=== PATIENT | male | born 1990 | race Caucasian/White ===

== ENCOUNTER 2017-10-08 08:04 | Emergency (ER) | END 2017-10-08 08:52 | disposition home or self-care (01) | DX: K04.7 Periapical abscess without sinus (principal) ==

== ENCOUNTER 2017-10-09 01:00 | Emergency (ER) | payer SELFPAY ==
[~2017-10-09] VITALS: Ht 180.3 cm; Wt 65.0 kg
[~2017-10-09 01:00] MED LIST: NAPR500T2 PO; PENI500T PO
[2017-10-09 01:11] VITALS: BP 124/60; PULSE 101; RESP 22; TEMP 102.8; O2SAT 98
[2017-10-09] MEDS ORDERED: ACETAMINOPHEN 650 MG/20.3 ML UDC ONE (02:00)
[2017-10-09 03:00] VITALS: BP 125/68; PULSE 88; RESP 16; TEMP 99.4; O2SAT 98
[2017-10-09] MEDS ORDERED: ACETAMINOPHEN 650 MG/20.3 ML UDC PO ONE (03:00)
[2017-10-09 03:49] LABS: AUTOMATED NEUTROPHIL # 9.8 TH/MM3 (1.8-7.7); BASOPHIL % 0.3 % (0.0-2.0); EOSINOPHIL % 0.1 % (0.0-4.0); HEMATOCRIT 40.3 % (39.0-51.0); HEMOGLOBIN 14.1 GM/DL (13.0-17.0); LYMPH % 8.6 % (9.0-44.0); MEAN CELL VOLUME 88.7 FL (80.0-100.0); MEAN CORPUSCULAR HEMOGLOBIN 31.1 PG (27.0-34.0); MEAN CORPUSCULAR HGB CONC 35.1 % (32.0-36.0); MEAN PLATELET VOLUME 7.4 FL (7.0-11.0); MONO % 10.3 % (0.0-8.0); MONOCYTE # 1.2 TH/MM3 (0-0.9); NEUT % 80.7 % (16.0-70.0); PLATELET COUNT 209 TH/MM3 (150-450); RED BLOOD COUNT 4.54 MIL/MM3 (4.50-5.90); RED CELL DISTRIBUTION WIDTH 12.2 % (11.6-17.2); WHITE BLOOD COUNT 12.1 TH/MM3 (4.0-11.0)
--- NOTE | 2017-10-09 03:50 | PD ---
HPI Chief Complaint: Fever Time Seen by Provider: 01:30 Travel History International Travel<30 days: No Contact w/Intl Traveler<30days: No Traveled to known affect area: No History of Present Illness HPI Patient has a tooth abscess lower left that he is on Pen-Vee K for that he started just yesterday when he went to another ER for the complaint he says the pain is getting worse in spite of the Pen-Vee K and he now says he has a fever of 103. He says he has no other source. He only thinks that the tooth infection is causing the fever. He denies congestion no cough he does have some trismus he reports otherwise he denies any other symptoms except fever he comes in for the fever and left infected lower tooth. Throbbing pain localized to left lower tooth molar area PFSH Past Medical History Medical History: Denies Significant Hx Influenza Vaccination: No Past Surgical History Surgical History: No Previous Surgery Social History Alcohol Use: No Tobacco Use: No Substance Use: No Allergies-Medications (Allergen,Severity, Reaction): Coded Allergies: No Known Allergies (Unverified , 10/09/17) Reported Meds & Prescriptions Reported Meds & Active Scripts Active Tramadol (Tramadol HCl) 50 Mg Tab 50 Mg PO Q6H PRN Clindamycin (Clindamycin HCl) 300 Mg Cap 300 Mg PO TID Naproxen 500 Mg Tab 500 Mg PO BID PRN Penicillin V Potassium 500 Mg Tab 500 Mg PO Q8H 7 Days Review of Systems Except as stated in HPI: all other systems reviewed are Neg General / Constitutional: Positive: Fever HENT: Positive: Other (toothache) Physical Exam Narrative GENERAL: non toxic non septic appearance SKIN: Warm and dry. HEAD: Atraumatic. Normocephalic. EYES: Pupils equal and round. No scleral icterus. No injection or drainage. ENT: Tooth decay to lower left maolars no apical abscess noted and no bone involvement with palpation of jaw bone by this MD . localized infection of tooth. unlikely systemic cause of fever. NECK: Trachea midline. No JVD. CARDIOVASCULAR: Regular rate and rhythm. RESPIRATORY: No accessory muscle use. Clear to auscultation. Breath sounds equal bilaterally. GASTROINTESTINAL: Abdomen soft, non-tender, nondistended. Hepatic and splenic margins not palpable. MUSCULOSKELETAL: Extremities without clubbing, cyanosis, or edema. No obvious deformities. NEUROLOGICAL: Awake and alert. No obvious cranial nerve deficits. Motor grossly within normal limits. Five out of 5 muscle strength in the arms and legs. Normal speech. PSYCHIATRIC: Appropriate mood and affect; insight and judgment normal. Data Data Last Documented VS Vital Signs Date Time Temp Pulse Resp B/P (MAP) Pulse Ox O2 Delivery O2 Flow Rate FiO2 10/09/17 04:45 10/09/17 03:00 99.4 88 16 98 Room Air Orders Orders Acetaminophen 650 Mg/20 Ml Liq (Tylenol (10/09/17 02:00) Acetaminophen 650 Mg/20 Ml Liq (Tylenol (10/09/17 03:00) Complete Blood Count With Diff (10/09/17 03:01) Comprehensive Metabolic Panel (10/09/17 03:01) Blood Culture (10/09/17 03:01) Influenzae A/B Antigen (10/09/17 03:01) Group A Rapid Strep Screen (10/09/17 03:01) Strep Culture (Group A) (10/09/17 03:20) Ed Discharge Order (10/09/17 04:47) Labs Laboratory Tests Test 10/09/17 03:25 White Blood Count 12.1 TH/MM3 Red Blood Count 4.54 MIL/MM3 Hemoglobin 14.1 GM/DL Hematocrit 40.3 % Mean Corpuscular Volume 88.7 FL Mean Corpuscular Hemoglobin 31.1 PG Mean Corpuscular Hemoglobin Concent 35.1 % Red Cell Distribution Width 12.2 % Platelet Count 209 TH/MM3 Mean Platelet Volume 7.4 FL Neutrophils (%) (Auto) 80.7 % Lymphocytes (%) (Auto) 8.6 % Monocytes (%) (Auto) 10.3 % Eosinophils (%) (Auto) 0.1 % Basophils (%) (Auto) 0.3 % Neutrophils # (Auto) 9.8 TH/MM3 Lymphocytes # (Auto) 1.0 TH/MM3 Monocytes # (Auto) 1.2 TH/MM3 Eosinophils # (Auto) 0.0 TH/MM3 Basophils # (Auto) 0.0 TH/MM3 CBC Comment DIFF FINAL Differential Comment Blood Urea Nitrogen 17 MG/DL Creatinine 1.19 MG/DL Random Glucose 125 MG/DL Total Protein 7.5 GM/DL Albumin 3.9 GM/DL Calcium Level 8.7 MG/DL Alkaline Phosphatase 58 U/L Aspartate Amino Transf (AST/SGOT) 19 U/L Alanine Aminotransferase (ALT/SGPT) 20 U/L Total Bilirubin 1.8 MG/DL Sodium Level 136 MEQ/L Potassium Level 3.9 MEQ/L Chloride Level 101 MEQ/L Carbon Dioxide Level 25.2 MEQ/L Anion Gap 10 MEQ/L Estimat Glomerular Filtration Rate 74 ML/MIN MDM Medical Decision Making Medical Screen Exam Complete: Yes Emergency Medical Condition: Yes Differential Diagnosis tooth ache and viral illness vs septic from apaical abscess tooth vs strep throat fever vs other Narrative Course toothache localized and fever seems most likely to viral infeection and separate from tooth issue , pt WBC in serum normal non toxic appearing pt and discharge to follow up dentistry Diagnosis Primary Impression: Tooth decay Additional Impression: Viral illness Patient Instructions: General Instructions, Toothache (ED) Scripts Tramadol (Tramadol) 50 Mg Tab 50 MG PO Q6H Y for PAIN, #10 TAB 0 Refills Prov: Adria Meredith MD 10/09/17 Clindamycin (Clindamycin) 300 Mg Cap 300 MG PO TID for Infection, #21 CAP 0 Refills Prov: Adria Meredith MD 10/09/17 Disposition: 01 DISCHARGE HOME Condition: Good Adria Meredith MD October 09, 2017 03:50
[2017-10-09 04:10] LABS: ALBUMIN 3.9 GM/DL (3.4-5.0); ALT (GPT) 20 U/L (12-78); AST (GOT) 19 U/L (15-37); BICARBONATE 25.2 MEQ/L (21.0-32.0); BLOOD UREA NITROGEN 17 MG/DL (7-18); CALCIUM 8.7 MG/DL (8.5-10.1); CHLORIDE 101 MEQ/L (98-107); CREATININE 1.19 MG/DL (0.60-1.30); GLOMERULAR FILTRATION RATE 74 ML/MIN (>89); GLUCOSE,RANDOM 125 MG/DL (74-106); SODIUM (NA) 136 MEQ/L (136-145)
[2017-10-09 04:12] LABS: ALKALINE PHOSPHATASE 58 U/L (45-117); TOTAL BILIRUBIN ADULT 1.8 MG/DL (0.2-1.0); TOTAL PROTEIN 7.5 GM/DL (6.4-8.2)
[2017-10-09] MEDS ORDERED: TRAM50TA PO (04:46)
[2017-10-09] MEDS ORDERED: CLIN300C5 PO (04:46)
== END 2017-10-09 05:10 | disposition home or self-care (01) ==
LOC: NEPE 01:00
DX: K02.9 Dental caries, unspecified (principal); B34.9 Viral infection, unspecified
CPT/HCPCS: 80053; 85025; 87040; 87081; 87804; 87880; 99283